=== PATIENT | female | born 1950 | race Caucasian/White ===

== ENCOUNTER 2021-03-15 08:15 | Outpatient (CLI) | payer OTHER | END 2021-03-15 08:26 | disposition home or self-care (01) | LOC: TOM 08:15 | PROVIDERS: ATTEND Surgery | DX: R10.84 Generalized abdominal pain (principal) ==

== ENCOUNTER 2021-03-29 07:47 | Outpatient (CLI) | payer OTHER | END 2021-03-29 08:00 | disposition home or self-care (01) | LOC: RAD 07:47 | PROVIDERS: ATTEND General Practice | DX: R10.9 Unspecified abdominal pain (principal) ==

== ENCOUNTER 2022-08-16 07:18 | Outpatient (CLI) | payer OTHER | END 2022-08-16 09:52 | disposition home or self-care (01) | LOC: MAMO-SONO 07:18 | DX: R92.1 Mammographic calcification found on diagnostic imaging of breast (principal) ==

== ENCOUNTER 2023-02-07 06:55 | Outpatient (CLI) | payer OTHER | END 2023-02-07 07:36 | disposition home or self-care (01) | LOC: TOM 06:55 | PROVIDERS: ATTEND Internal Medicine Gastroenterology | DX: R10.31 Right lower quadrant pain (principal) ==

== ENCOUNTER 2023-05-03 07:59 | Outpatient (CLI) | payer OTHER | END 2023-05-03 08:03 | disposition home or self-care (01) | LOC: RAD 07:59 | DX: M17.12 Unilateral primary osteoarthritis, left knee (principal) ==

== ENCOUNTER → 2023-08-21 08:36 | Outpatient (CLI) | payer OTHER | END | disposition home or self-care (01) | LOC: MAMO-SONO 08:36 | PROVIDERS: ATTEND Surgery | DX: R92.1 Mammographic calcification found on diagnostic imaging of breast (principal) ==

== ENCOUNTER → 2024-08-22 | Outpatient (CLI) | payer OTHER | END | disposition home or self-care (01) | LOC: MAMO-SONO 10:09 | PROVIDERS: ATTEND Surgery | DX: R92.1 Mammographic calcification found on diagnostic imaging of breast (principal) ==

== ENCOUNTER 2024-10-08 07:25 | Outpatient (CLI) | payer OTHER | END 2024-10-09 08:32 | disposition home or self-care (01) | LOC: RAD 07:25 | PROVIDERS: ATTEND Surgery | DX: M79.641 Pain in right hand (principal); S69.91XA Unspecified injury of right wrist, hand and finger(s), initial encounter ==